=== PATIENT | male | born 1960 | race Native Hawaiian/Other Pacific Islander ===

== ENCOUNTER 2021-01-26 20:52 | Emergency (ER) | payer OTHER ==
[2021-01-26] MEDS ORDERED: HYDROcodone/ACETAMINOPHEN 5-325 MG TAB PO ONE (21:29)
[2021-01-26] MEDS ORDERED: IBUPROFEN 600 MG TAB PO ONE (21:29)
[2021-01-26] MEDS ORDERED: ONDANSETRON 4 MG ODT TAB PO ONE (21:30)
[2021-01-26 21:34] VITALS: BP 214/127
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
== END 2021-01-26 23:36 | disposition home or self-care (01) ==
LOC: ED 20:52
DX: S63.591A Other specified sprain of right wrist, initial encounter (principal); S20.219A Contusion of unspecified front wall of thorax, initial encounter; M62.838 Other muscle spasm; M54.2 Cervicalgia; M62.830 Muscle spasm of back; M54.6 Pain in thoracic spine; Z98.890 Other specified postprocedural states; Z79.899 Other long term (current) drug therapy; V89.2XXA Person injured in unspecified motor-vehicle accident, traffic, initial encounter; Y93.89 Activity, other specified; Y92.488 Other paved roadways as the place of occurrence of the external cause; Y99.8 Other external cause status
CPT/HCPCS: 70450; 71046; 72072; 72125; 99284; Q0162